=== PATIENT | female | born 1980 | race Caucasian/White ===

== ENCOUNTER 2024-10-07 09:25 | Outpatient (CLI) | payer OTHER, SELFPAY | END 2024-10-07 09:26 | disposition home or self-care (01) | LOC: NFLDREF 10-10 14:01 | PROVIDERS: PCP Nurse Practitioner Adult Health; Referring Provider Nurse Practitioner Adult Health; Visit Provider Physician Assistant | DX: N39.0 Urinary tract infection, site not specified (principal); B96.20 Unspecified Escherichia coli [E. coli] as the cause of diseases classified elsewhere | CPT/HCPCS: 87086 ==